=== PATIENT | female | born 1955 | race Caucasian/White ===

== ENCOUNTER 2019-01-05 14:21 | Emergency (ER) | payer OTHER ==
[~2019-01-05] VITALS: Ht 170.2 cm; Wt 83.9 kg
== END 2019-01-05 20:02 | disposition home or self-care (01) ==
LOC: ER 14:21
DX: J40 Bronchitis, not specified as acute or chronic (principal); A37.90 Whooping cough, unspecified species without pneumonia; R05 Cough